=== PATIENT | female | born 1980 | race Caucasian/White ===

== ENCOUNTER 2019-10-13 18:25 | Emergency (ER) | payer SELFPAY ==
[~2019-10-13] VITALS: Ht 162.6 cm; Wt 73.0 kg
[2019-10-13] MEDS ORDERED: VISCOUS LIDOCAINE 2% 15 ML UDC PO STA (18:57)
[2019-10-13] MEDS ORDERED: MAGNESIUM/ALUMINUM HYDROXIDE/SIMETHICONE 30ML UDC PO STA (18:57)
[2019-10-13] MEDS ORDERED: FAMOTIDINE 20MG TABLET PO SCH (19:00)
[2019-10-13 19:20] LABS: CHLORIDE 107 mEq/L (98-107)
[2019-10-13 19:21] LABS: BASOPHILS % 0.9 % (0.0-2.0); EOSINOPHILS % 2.3 % (0.0-5.0); HEMATOCRIT. 38.1 % (36.0-48.0); LYMPHOCYTES % 26.7 % (20.0-50.0); MEAN CORPUSCULAR VOLUME 82.2 fL (81.0-99.0); MEAN PLATELET VOLUME 8.8 fl (7.4-10.4); MONOCYTES % 7.4 % (2.0-8.0); NEUTROPHILS % 62.7 % (40.0-76.0); PLATELET 318 x1000/uL (130-400); RED BLOOD CELL COUNT 4.63 mill/uL (4.2-5.4); RED CELL DISTRIBUTION WIDTH 14.7 % (11.6-14.6)
[2019-10-13 19:24] LABS: PROTHROMBIN TIME 10.4 sec (9.6-11.0)
[2019-10-13 20:40] VITALS: BP 120/65
[2019-10-13] MEDS ORDERED: SUCRALFATE 1 G/10 ML UDC PO SCH (21:00)
== END 2019-10-13 20:43 | disposition home or self-care (01) ==
LOC: ER 18:25
DX: R10.13 Epigastric pain (principal); R74.0 Nonspecific elevation of levels of transaminase and lactic acid dehydrogenase [LDH]; R03.0 Elevated blood-pressure reading, without diagnosis of hypertension
CPT/HCPCS: 36415; 76705; 80053; 81025; 85025; 99284